=== PATIENT | female | born 1945 | race Caucasian/White ===

== ENCOUNTER 2018-11-28 01:37 | Outpatient (CLI) | payer MEDICARE, BC, SELFPAY ==
[2018-11-28 11:49] LABS: INR 2.3 (0.9-1.1); Prothrombin Time 23.3 sec (9.3-11.0)
== END 2018-11-28 01:57 ==
PROVIDERS: PCP Internal Medicine Cardiovascular Disease; Visit Provider Internal Medicine Cardiovascular Disease
DX: I48.4 Atypical atrial flutter (principal); Z79.01 Long term (current) use of anticoagulants
CPT/HCPCS: 36415; 85610